=== PATIENT | male | born 1960 | race Caucasian/White ===

== ENCOUNTER → 2022-05-10 13:50 | Outpatient (REF) | payer OTHER, SELFPAY ==
--- NOTE | 2022-05-10 11:18 | HM_ITS ---
Conclusion: 1. Patient was monitored for total period of 3 days and 1 hour 2. Baseline was normal sinus rhythm with average heart of 76 beats per minute 3. No significant pauses or bradycardia noted 4. Total of 43,483 PACs accounting for 13% of total beats account for frequent PACs with multiple short runs of 4-5 beats of supra tachycardia 5. Total of 2418 PVCs accounting for 0.72% of total beats accounting for occasional PVCs 6. No patient reported events MTDD
--- NOTE | 2022-05-10 14:17 | CA_ITS ---
Transthoracic Echocardiogram Patient (Last, First, Middle): Gregg Rubio J Gender: Male Date of : 1960 Age: 61 Procedure Date: 05/10/2022 Procedure Type: Transthoracic Echocardiogram Location: OP Height: 177.8 cm Weight: 136.08 kg BSA: 2.48 m2 Heart Rate: 64 bpm BP: 110 / 60 mmHg Customs Inspector: MAIDA Referring MD: Frank Lassiter MD Symptoms: I49.1 - Atrial premature depolarization Study Quality: Adequate w contrast ECG Rhythm: Sinus Conclusions: - The left ventricular systolic function is normal. The calculated ejection fraction is 63% by biplane method. - No obvious valvular pathology seen on this study. - There is mild dilatation of the ascending aorta measuring 4.20 cm. Findings Procedure Information Contrast agent, definity, is being given per protocol without apparent complications. Left Ventricle Normal left ventricular cavity size. There is normal left ventricular wall thickness. The left ventricular systolic function is normal. The calculated ejection fraction is 63% by biplane method. There is no evidence of regional wall motion abnormalities. Diastolic function is normal for age. Right Ventricle Normal right ventricular cavity size and systolic function. Atria Both atria are normal in size. Aortic Valve The aortic valve was not well visualized. There is no aortic valve stenosis. There is no aortic valve regurgitation. Mitral Valve The mitral valve appears normal. There is no mitral valve regurgitation. There is no mitral valve stenosis. Pulmonic Valve The pulmonic valve is likely normal. Tricuspid Valve There is trace tricuspid valve regurgitation. There is no evidence of pulmonary hypertension. Great Vessels There is mild dilatation of the ascending aorta measuring 4.20 cm. Venous The inferior vena cava is normal in size and collapses greater than 50% with inspiration. Pericardium/Pleural There is a trivial pericardial effusion. Prior Study Comparison No prior study available for comparison. Recommendations, Care & Conclusions No obvious valvular pathology seen on this study. Measurements 2D Linear Measurements IVSd: 0.71 0.6-0.9/0.6-1.0 cm LVIDd: 4.82 3.9-5.3/4.2-5.9 cm LVIDd Index: 1.94 2.4-3.2/2.2-3.1 cm/m2 LVIDs: 2.95 2.0-3.6 cm LVPWd: 0.92 0.7-1.1 cm LA Diam: 3.60 2.7-3.8/3.0-4.0 cm LAIDs Index: 1.45 1.5-2.3 cm/m2 LV Mass: 163.00 67-162/88-224 g LV Mass Index: 65.73 43-95/49-115 g/m2 LVOT Diam: 2.70 3.0+(-)1.3 cm 2D Systolic Function EF 4C: 66.00 >55% EF 2C: 63.80 >55% EF BiP: 63.00 >55% Mitral Valve MV Pk E: 0.99 MV PK A: 0.58 MV Decel Time: 163.00 E/A: 1.70 E'Lateral: 9.79 E'Medial: 7.72 E/E' Med: 12.80 E/E' Lat: 10.10 PHT: 48.00 MVA PHT: 4.58 Decel [place]: 6.08 Aortic Valve AoV Pk [place]: 1.52 AoV Mn [place]: 1.01 AoV VTI: 0.32 AoV Pk Grad: 9.00 Aov Mn Grad: 5.00 UNRULY Cont.VTI: 5.37 LVOT LVOT Pk [place]: 1.36 LVOT Mn [place]: 0.97 LVOT VTI: 0.30 LVOT Pk Grad: 7.00 LVOT Mn Grad: 4.00 LVOT Diam: 2.70 LVOT Area: 5.73 Diastolic Function MV Pk E: 0.99 MV Pk A: 0.58 E/A: 1.70 E'Medial: 7.72 E/E' Med: 12.80 E' Laterial: 9.79 E/E' Lat: 10.10 Right Ventricle TAPSE (mm): 23.10 TVS' [place]: 12.00 Tricuspid Valve TR Pk [place]: 2.43 TR Pk Grad: 24.00 RA Press: 3.00 RVSP: 27.00 Great Vessels Aorta Sinus of Valsalva: 3.50 2.0-3.5 cm Ao Asc: 4.20 2.1-3.4 cm Pulmonary Veins Pulm Vein S/D 0.90 Pulmonary Valve PV Pk [place]: 1.07 Peak PV Grad: 5.00 Updated in Other Vendor System with Status of Final Christofer Padgett MD electronically signed on 05/10/2022 6:16:32 PM with status of Final
== END ==
LOC: HO.CARD 13:50
PROVIDERS: Visit Provider Internal Medicine Cardiovascular Disease
DX: I49.1 Atrial premature depolarization (principal)
CPT/HCPCS: 93242; 93306; Q9957

== ENCOUNTER → 2022-05-14 15:31 | Outpatient (REF) | payer OTHER, SELFPAY | LOC: HO.SL 15:31 | PROVIDERS: Visit Provider Internal Medicine Cardiovascular Disease | DX: G47.33 Obstructive sleep apnea (adult) (pediatric) (principal) | CPT/HCPCS: 95806 ==

== ENCOUNTER 2023-06-25 15:10 | Outpatient (AMB) | payer OTHER, SELFPAY ==
[2023-06-25 15:16] VITALS: BP 120/60; PULSE 62; BMI 42.3
--- NOTE | 2023-06-25 15:16 | MHC.OFFVIS ---
Intake Vital Signs 06/25/23 15:16 Height 5 ft 9 in Weight 286 lb 9.615 oz BMI 42.3 BP 120/60 Blood Pressure Location Lt brachial Position Sitting Pulse 62 Intake Visit Reasons: 1 yr f/u Intake Note: 1 yr f/up patient its fine Allergies No Known Allergies Allergy (Verified 06/25/23 15:19) Medication List - Last Reconciled 06/25/23 by Frank Lassiter MD metoprolol succinate ER 25 mg PO DAILY HPI HPI Comments History of Present Illness Details Gregg comes for follow-up. He has no new cardiac symptoms. He occasionally forgets to take metoprolol. He denies any prolonged palpitation irregular heartbeat. Denies any exertional chest pain or shortness of breath. Has been trying to modify his lifestyle and dietary pattern has lost some weight. Denies any heart failure symptoms. No lightheadedness, syncope. PFSH Medical History Obesity Surgical History Hx of knee surgery Family History Father Cancer Mother Afib Brother Afib Social History Patient Tobacco Use Status: Never used Tobacco Review of Systems Const Reports chills, Reports fatigue, Reports fever(s), Reports frequent falls, Reports weakness, Reports weight gain and Reports weight loss ENT Reports dizziness Card Reports chest pain, Reports leg edema, Reports lightheadedness, Reports palpitations, Reports dyspnea and Reports dyspnea on exertion Resp Reports cough, Reports dyspnea and Reports dyspnea on exertion GI Reports hematochezia Musc Reports abnormal gait, Reports muscle weakness, Reports numbness, Reports radiating pain into limb and Reports tingling Neuro Denies Abnormal speech present, Reports abnormal gait, Reports dizziness, Reports frequent falls, Reports numbness, Reports tingling and Reports weakness Endo Reports fatigue and Reports palpitations Physical Exam Vital Signs: Last Vital Signs Pulse 62 06/25/23 15:16 BP 120/60 06/25/23 15:16 BMI result Body Mass Index 42.3 Const General: cooperative, comfortable, no acute distress, alert, awake and well groomed Nutritional Appearance: obese morbidly obese Orientation/consciousness: patient oriented x3 Limitations: no limitations Neck Neck: Yes trachea midline, Yes supple and Yes no JVD Resp Effort & Inspection: normal respiratory effort Auscultation: clear to auscultation bilaterally Cardio Jugular venous distension: no JVD Palpation: normal PMI Rate: regular rate Rhythm: abnormal rhythm with ectopic beats Heart sounds: S1 normal heart sound present, S2 normal heart sound present, no click, no gallops, no murmurs and no rubs GI Inspection: Yes obesity Auscultation: normal bowel sounds Neuro General: patient oriented x3 and no focal motor deficits Speech: No Abnormal speech present Psych Appearance: grossly normal Assessment & Plan Assessment & Plan (1) PAC (premature atrial contraction): Code(s): I49.1 - Atrial premature depolarization Plan: Patient prior history of PACs without any new symptoms or concerning symptoms for atrial fibrillation. For now continue metoprolol therapy. No change in therapy. Avoidance of stimulants was discussed. He understands management. Advised to call me with worsening symptoms. (2) Thoracic aortic aneurysm: Code(s): I71.20 - Thoracic aortic aneurysm, without rupture, unspecified Plan: Mild thoracic aortic enlargement. No symptoms related to it. Continue metoprolol therapy. Advised to monitor annually by echocardiogram. No surgical interventions required at this point time. Advised to avoid sudden strenuous isometric exercise. Will follow up in the clinic in 1 year's time, sooner p.r.n.. Thank you for allowing me to partake in his care Coding Level of Care Code Est Pt Level 4 (27569) Diagnoses PAC (premature atrial contraction) I49.1 Thoracic aortic aneurysm I71.20
== END 2023-06-25 15:39 | disposition home or self-care (01) ==
PROVIDERS: Visit Provider Internal Medicine Cardiovascular Disease
DX: I49.1 Atrial premature depolarization (principal); I71.20 Thoracic aortic aneurysm, without rupture, unspecified
CPT/HCPCS: 99214

== ENCOUNTER → 2023-06-25 15:10 | Outpatient (BNVA) | payer OTHER, SELFPAY | PROVIDERS: Visit Provider Internal Medicine Cardiovascular Disease ==

== ENCOUNTER 2023-07-12 07:59 | Day surgery (SDC) | payer OTHER, SELFPAY ==
[2023-07-10 11:16] VITALS: BMI 40.6
--- NOTE | 2023-07-10 15:03 | HO.ANESPROP2 ---
Documented by User: Susie Jensen NP 07/10/23 15:06 HPI - Anesthesia Eval Consult details Narrative: 62yo M for Colonoscopy Follows [facility] Cardiology yearly - last office visit 06/25/23 - stable for 1 year f/u PMFSH Active Problems Active Problems: All Active Problems (Updated 07/10/23 @ 11:15 by Aidee Houston, RN) Thoracic aortic aneurysm (Acute) PAC (premature atrial contraction) (Acute) Obesity (Acute) Past Medical History Medical History Arthritis PAC (premature atrial contraction) PVC's (premature ventricular contractions) Thoracic aortic aneurysm (TAA) DONNA (obstructive sleep apnea) Obesity Family History Family History Father Cancer Mother Afib Brother Afib Surgical History Surgical History History of arthroscopy of both knees Hx of varicose vein ligation Hx of vasectomy Hx of colonoscopy Hx of knee surgery Social History Social History Patient Tobacco Use Status: Never used Tobacco Meds Allergies Allergy/AdvReac Type Severity Reaction Status Date / Time No Known Allergies Allergy Verified 06/25/23 15:19 Exam Height,Weight and Vital Signs: Height 5 ft 10.25 in Weight 129.274 kg Narrative Narrative: EKG 06/2023 SR with SA ? Inferior infarct (Rev'd by [facility] [employer]) ECHO 2021 Conclusions: - The left ventricular systolic function is normal. The calculated ejection fraction is 63% by biplane method. - No obvious valvular pathology seen on this study. - There is mild dilatation of the ascending aorta measuring 4.20 cm. Assessment and Plan Assessment Anesthesia Assessment: Chart Reviewed Documented by User: Radha Kelley MD 07/12/23 08:44 [facility] Active Problems Active Problems: All Active Problems (Updated 07/10/23 @ 11:15 by Aidee Houston, RN) Thoracic aortic aneurysm (Acute) PAC (premature atrial contraction) (Acute) Obesity (Acute) Mild DONNA per sleep study but patient is denying. Conservative measures recommended and CPAP if indicated. Patient not doing anything for the DONNA for now Past Medical History Medical History Arthritis PAC (premature atrial contraction) PVC's (premature ventricular contractions) Thoracic aortic aneurysm (TAA) DONNA (obstructive sleep apnea) Obesity Family History Family History Father Cancer Mother Afib Brother Afib Family history of problems with anesthesia: No Surgical History Surgical History History of arthroscopy of both knees Hx of varicose vein ligation Hx of vasectomy Hx of colonoscopy Hx of knee surgery History of Problems with Anesthesia: No Social History Social History Patient Tobacco Use Status: Never used Tobacco Meds Allergies Allergy/AdvReac Type Severity Reaction Status Date / Time No Known Allergies Allergy Verified 06/25/23 15:19 Exam Height,Weight and Vital Signs: Height 5 ft 10.25 in Weight 129.274 kg Vital Signs Temp Pulse Resp BP Pulse Ox O2 Del Method 07/12/23 08:02 98 F 78 20 122/67 97 Room Air Airway Mallampati Class: III TM Dist: >3cm Neck ROM: Full Loose/Missing/Broken Teeth: No (Denies broken, loose, missing teeth) Heart: RRR Lungs: CTAB Assessment and Plan Assessment Anesthesia Assessment: Anesthesia Plan Discussed Final Anesthetic Review Family History of Problems with Anesthesia: No History of Problems with Anesthesia: No NPO: Yes ASA Class: III Final Preanesthetic Review: No Changes in Pt Med Stat, Meds/Allgs Chart Reviewed, Consent Obtained/Reviewed and Anes Risks/Benef Reviewed Patient Risk: Intermediate Procedure Risk: Low Assessment/Block/Sedation in SS: Assess/Block/Sedation-SS Anesthetic Plan Anesthetic Plan: MAC: Disposition: Standard PACU
[2023-07-12 08:02] VITALS: BP 122/67; PULSE 78; RESP 20; TEMP 36.6; O2SAT 97; BMI 40.6
[2023-07-12] MEDS: Lactated Ringers 1,000 ML 100 ML IVCONT (08:17)
--- NOTE | 2023-07-12 08:21 | MHC.SHP ---
Pre-Procedural Eval Section A Date of Service: 07/12/23 Section B Chief Complaint: screening Details of Present Illness: see H&P no changes Relevant Family History (Specify if Yes): No Relevant Social History: None Present Medications: see Short Stay Collaborative assessment Medical History: No relevant PMH Allergies: Allergies Allergy/AdvReac Type Severity Reaction Status Date / Time No Known Allergies Allergy Verified 06/25/23 15:19 Review of Systems Sugical H&P ROS: Negative: Constitution, Cardiovascular, Respiratory, Neurological, Psychiatric, Hem-Onc, Allergic/Immunologic, Gastrointestinal, Genitourinary, Musculoskeletal, Integumentary, Endocrine and Eyes/Ears/Nose/Throat Exam Surgical H&P Exam: Normal: HEENT, Normal: Heart, Normal: Lungs, Normal: Extremities, Normal: Abdomen, Normal: Skin and Normal: Neurological Plan Diagnosis/Plan: Unchanged I have reviewed the history and physical and performed a pertinent physical examination on my patient. No changes have occurred unless specified. Time Spent With Patient Time: Total time managing care of this patient today ____ minutes.
[2023-07-12 09:12] VITALS: BP 93/53; PULSE 54; RESP 16; TEMP 36.6; O2SAT 98
[2023-07-12 09:27] VITALS: BP 110/67; PULSE 51; RESP 18; O2SAT 100
--- NOTE | 2023-07-12 09:42 | OP_ITS ---
DATE OF SERVICE: 07/12/2023 SURGEON: Jake Keith MD INDICATIONS: Colon cancer screening. PREOPERATIVE DIAGNOSIS: POSTOPERATIVE DIAGNOSIS: PROCEDURE PERFORMED: Colonoscopy to the terminal ileum with biopsy. ESTIMATED BLOOD LOSS: COMPLICATIONS: ANESTHESIA: Monitored anesthesia care. ASSISTANTS: SPECIMENS: DESCRIPTION OF PROCEDURE: A history and physical was performed. The risks and benefits of the procedure were explained to the patient. Informed consent was obtained. The patient was placed in the left lateral decubitus position. A digital rectal exam was performed and was found to be normal. The Olympus pediatric video colonoscope was introduced in the rectum and advanced to the cecum. The cecum was identified by transillumination, palpation, and identification of ileocecal valve. Examination was performed. The scope was removed. He tolerated the procedure well and was taken to recovery area in stable condition. FINDINGS: The terminal ileum was normal. The visualized colonic mucosa was within normal limits without evidence of masses or ulcers. Two polyps were identified in the rectum measuring less than 5 mm. Both were removed with biopsy forceps. Retroflexed examination showed small internal hemorrhoids and hypertrophic anal papillae. The quality of the prep was good. IMPRESSION: Colon polyps. RECOMMENDATION: Follow up the biopsy results. MD ROLANDO Phelan/ANNEL / [id number]
== END 2023-07-12 09:50 | disposition home or self-care (01) ==
PROVIDERS: Visit Provider Internal Medicine Gastroenterology
PROC: 0DJD8ZZ Inspection of Lower Intestinal Tract, Via Natural or Artificial Opening Endoscopic (ICD-10-PCS; CPT 45378; principal; 2023-07-12 09:10)
DX: Z12.11 Encounter for screening for malignant neoplasm of colon (principal); Z86.010 Personal history of colon polyps; D12.8 Benign neoplasm of rectum; K64.8 Other hemorrhoids; K62.89 Other specified diseases of anus and rectum; I49.1 Atrial premature depolarization; I49.3 Ventricular premature depolarization; M19.90 Unspecified osteoarthritis, unspecified site; E66.9 Obesity, unspecified; Z68.41 Body mass index [BMI] 40.0-44.9, adult; Z79.899 Other long term (current) drug therapy; Z98.52 Vasectomy status
CPT/HCPCS: 45380; 88305; J2704

== ENCOUNTER → 2023-07-17 12:58 | Outpatient (REF) | payer OTHER, SELFPAY ==
--- NOTE | 2023-07-17 13:00 | CA_ITS ---
Transthoracic Echocardiogram Patient (Last, First, Middle): Gregg Rubio J Gender: Male Date of : 1960 Age: 62 Procedure Date: 07/17/2023 Procedure Type: Transthoracic Echocardiogram Location: OP Height: 175.26 cm Weight: 129.73 kg BSA: 2.40 m2 Heart Rate: 57 bpm BP: 122 / 64 mmHg Pairer Substandard: MAIDA Referring MD: Frank Lassiter MD Symptoms: I71.20 - Thoracic aortic aneurysm, without rupture, unspecified Study Quality: Adequate ECG Rhythm: Bradycardia Conclusions: - The left ventricular systolic function is normal. The calculated ejection fraction is 59% by biplane method. - No obvious valvular pathology seen on this study. - There is mild dilatation of the ascending aorta measuring 4.20 cm. Findings Procedure Information Contrast agent, definity, is being given per protocol without apparent complications. Left Ventricle Normal left ventricular cavity size. There is normal left ventricular wall thickness. The left ventricular systolic function is normal. The calculated ejection fraction is 59% by biplane method. There is no evidence of regional wall motion abnormalities. Diastolic function is normal for age. LV peak GLS -19.9%. Right Ventricle Normal right ventricular cavity size and systolic function. Atria Both atria are normal in size. Aortic Valve There is a normal trileaflet aortic valve. There is no aortic valve stenosis. There is no aortic valve regurgitation. Mitral Valve The mitral valve appears normal. There is no mitral valve regurgitation. There is no mitral valve stenosis. Pulmonic Valve The pulmonic valve is likely normal. Tricuspid Valve Normal tricuspid valve structure. There is mild tricuspid valve regurgitation. There is no evidence of pulmonary hypertension. Great Vessels The aortic arch is normal in size. There is mild dilatation of the ascending aorta measuring 4.20 cm. Venous The inferior vena cava is normal in size and collapses greater than 50% with inspiration. Pericardium/Pleural There is no evidence of pericardial effusion. Prior Study Comparison No significant change compared to prior study dated: 05/10/2022. Recommendations, Care & Conclusions No obvious valvular pathology seen on this study. Measurements 2D Linear Measurements IVSd: 0.69 0.6-0.9/0.6-1.0 cm LVIDd: 5.44 3.9-5.3/4.2-5.9 cm LVIDd Index: 2.27 2.4-3.2/2.2-3.1 cm/m2 LVIDs: 4.01 2.0-3.6 cm LVPWd: 0.62 0.7-1.1 cm LA Diam: 3.90 2.7-3.8/3.0-4.0 cm LAIDs Index: 1.63 1.5-2.3 cm/m2 LV Mass: 152.28 67-162/88-224 g LV Mass Index: 63.45 43-95/49-115 g/m2 LVOT Diam: 2.60 3.0+(-)1.3 cm 2D Systolic Function EF 4C: 63.80 >55% EF 2C: 52.60 >55% EF BiP: 58.60 >55% Mitral Valve MV Pk E: 1.09 MV PK A: 0.60 MV Decel Time: 175.00 E/A: 1.80 E'Lateral: 10.20 E'Medial: 7.94 E/E' Med: 13.70 E/E' Lat: 10.70 PHT: 51.00 MVA PHT: 4.31 Decel [place]: 6.26 Aortic Valve AoV Pk [place]: 1.51 AoV Pk Grad: 9.00 UNRULY: 4.16 LVOT LVOT Pk [place]: 1.23 LVOT Mn [place]: 0.87 LVOT VTI: 0.27 LVOT Pk Grad: 6.00 LVOT Mn Grad: 3.00 LVOT Diam: 2.60 LVOT Area: 5.31 Diastolic Function MV Pk E: 1.09 MV Pk A: 0.60 E/A: 1.80 E'Medial: 7.94 E/E' Med: 13.70 E' Laterial: 10.20 E/E' Lat: 10.70 Tricuspid Valve TR Pk [place]: 2.48 TR Pk Grad: 25.00 RA Press: 3.00 RVSP: 28.00 Great Vessels Aorta Sinus of Valsalva: 3.50 2.0-3.5 cm Ao Asc: 4.20 2.1-3.4 cm Ao Arch: 3.40 Pulmonary Veins Pulm Vein S/D 0.70 Pulmonary Valve PV Pk [place]: 1.05 Peak PV Grad: 4.00 Updated in Other Vendor System with Status of Final Christofer Padgett MD electronically signed on 07/19/2023 12:18:04 PM with status of Final
== END ==
LOC: HO.CARD 12:58
PROVIDERS: Visit Provider Internal Medicine Cardiovascular Disease
DX: I71.20 Thoracic aortic aneurysm, without rupture, unspecified (principal)
CPT/HCPCS: 93306; 93356; Q9957

== ENCOUNTER → 2023-07-17 13:00 | Outpatient (BNV) | payer OTHER, SELFPAY | PROVIDERS: Visit Provider Internal Medicine | DX: I71.20 Thoracic aortic aneurysm, without rupture, unspecified (principal) | CPT/HCPCS: 93306 ==

== ENCOUNTER 2024-06-25 15:03 | Outpatient (AMB) | payer OTHER, SELFPAY ==
[2024-06-25 15:22] VITALS: BP 118/72; RESP 59; BMI 39.6
--- NOTE | 2024-06-25 15:22 | MHC.OFFVIS ---
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 He has been doing his work without any issues. Denies any exertional chest pain or shortness of breath. Taking his medications. He said sometimes at work about 2 or 3 times last year while he is upright and moving around he gets lightheaded. No syncopal episodes. No orthostatic lightheadedness when he gets up in the morning. Denies any palpitations including no prolonged irregular heartbeat. [facility] Medical History Arthritis PAC (premature atrial contraction) PVC's (premature ventricular contractions) Thoracic aortic aneurysm (TAA) DONNA (obstructive sleep apnea) Obesity Surgical History History of arthroscopy of both knees Hx of varicose vein ligation Hx of vasectomy Hx of colonoscopy Hx of knee surgery Family History Father Cancer Mother Afib Brother Afib Social History Patient Tobacco Use Status: Never used Tobacco Review of Systems Const Denies chills, Denies fatigue, Denies fever(s), Denies frequent falls, Denies weakness, Denies weight gain and Denies weight loss ENT Denies dizziness Card Denies chest pain, Denies leg edema, Denies lightheadedness, Denies palpitations, Denies dyspnea, Denies dyspnea on exertion, Denies orthopnea and Denies other (loss of consciousness) Resp Denies cough, Denies dyspnea and Denies dyspnea on exertion GI Denies hematochezia and Denies change in stool character Musc Denies abnormal gait, Denies muscle weakness, Denies numbness, Denies radiating pain into limb and Denies tingling Neuro Denies Abnormal speech present, Denies abnormal gait, Denies dizziness, Denies frequent falls, Denies numbness, Denies tingling and Denies weakness Endo Denies fatigue and Denies palpitations Physical Exam Vital Signs: Last Vital Signs Resp 59 H 06/25/24 15:22 BP 118/72 06/25/24 15:22 BMI result Body Mass Index 39.6 Const General: cooperative, comfortable, no acute distress, alert, awake and well groomed Nutritional Appearance: obese morbidly obese Orientation/consciousness: patient oriented x3 Limitations: no limitations Neck Neck: Yes trachea midline, Yes supple and Yes no JVD Resp Effort & Inspection: normal respiratory effort Auscultation: clear to auscultation bilaterally Cardio Jugular venous distension: no JVD Palpation: normal PMI Rate: regular rate Rhythm: abnormal rhythm with ectopic beats Heart sounds: S1 normal heart sound present, S2 normal heart sound present, no click, no gallops, no murmurs and no rubs GI Inspection: Yes obesity Auscultation: normal bowel sounds Neuro General: patient oriented x3 and no focal motor deficits Speech: No Abnormal speech present Psych Appearance: grossly normal Office Procedures EKG Details: EKG shows normal sinus rhythm with possible inferior infarct most likely due to body habitus with low voltage QRS complexes 06051-Rnrepoblgyczsjane, Complete Assessment & Plan Assessment & Plan (1) Thoracic aortic aneurysm: Code(s): I71.20 - Thoracic aortic aneurysm, without rupture, unspecified Category: Medical Plan: Mild thoracic aortic aneurysm. Will repeat echocardiogram in near future to assess for any enlargement. If stable will pursue echocardiogram every 2 years after that. Continue aggressive blood pressure control. He is having symptoms of orthostatic lightheadedness most likely due to reduce salt intake. Advised to increase his salt intake as well as fluid intake. Orthostatic precautions were discussed. (2) PAC (premature atrial contraction): Code(s): I49.1 - Atrial premature depolarization Category: Medical Plan: PACs without any symptoms and suppressed on metoprolol therapy. Continue the same. Avoidance of stimulants was discussed advised to call me with any change in symptoms especially prolonged irregular heartbeat. Will follow up in the clinic in 1 year's time, sooner p.r.n.. Thank you for allowing me to partake in his care Orders: Orders CA echo transthoracic complete Today I71.20 - Thoracic aortic aneurysm, without rupture, unspecified Coding Level of Care Code Est Pt Level 4 (50117) Complex EM visit Add On G2211 Diagnoses Thoracic aortic aneurysm I71.20 PAC (premature atrial contraction) I49.1 CPT Codes EKG - CPT: 22679-Aqaqlvsdfwyfxhmcr, Complete ([id number])
--- OUTSIDE RECORDS SUMMARY | 2024-07-01 04:15 | XMS_ITS | Continuity of Care Document ---
Author Organization [facility] Address [address] [place] [address] Phone Care Team Providers Care Systems Admin Name Role Phone Jr RUIZ, RVT, DARIEL, [...] E&M Established 15 Mins [facility], [address] [place] [address] Dr Baez 1000Suite 1000L[place], [id number], [place] tel:[phone] [place] Venous insufficiency (chronic) (peripheral) 4 Jr RUIZ RVT, DARIEL Puente. [address] [place] [address], [place], [place], [id number] , [place]. tel:[phone] Referring Provider: Nick Hill, [facility] [address], [place], [address]. tel:[phone] [facility], [address] [place] [address] Dr Baez 1000Suite 1000L[place], [id number], [place] tel:[phone] [facility] Encounter for follow-up examination after completed treatment for conditions other than malignant neVaricose veins of bilateral lower extremities with pain 4 Jr RUIZ RVT, DARIEL Puente. [facility] [address], [place], [place], [id number] , [place]. tel:[phone] Referring Provider: Nick Hill, [facility] [address], [place], [address]. tel:[phone] [facility], [address] [place] [address] Dr Baez 1000Suite 1000L[place], [id number], [place] tel:[phone] [facility] Varicose veins of left lower extremity with other complications 3 Ciara Vazquez . [address], [address], [place], [place], [id number] , [place]. tel:[phone] Referring Provider: Nick Hill, [facility] [address], [place], [address]. tel:[phone] [facility], [address] [place] [address] Dr Baez 1000Suite 1000L[place], [id number], [place] tel:[phone] [facility] Encounter for follow-up examination after completed treatment for conditions other than malignant ne 3 Jr RUIZ RVT, DARIEL Puente. [address] [facility], [address], [facility], [place], [id number] , [place]. tel:[phone] Referring Provider: Nick Hill, [employer] [employer] [address], [place], [address]. [phone] [facility], [address] [place] [address] Dr Baez 1000Suite 1000Lillian [place], [id number], [place] tel:[phone] CVR - [facility] Chronic venous hypertension (idiopathic) with inflammation of left lower extremity 3 Jr RUIZ RVT, DARIEL Puente. [address] [facility] [address], [address], [facility], [place], [id number] , [place]. tel: [phone] Referring Provider: Nick Hill, [facility] [address], [place], [address]. tel:[phone] [facility], [address] [place] [address] Dr Baez 1000Suite 1000Lillian [place], [id number], [place] tel:[phone] CVR - [facility] Varicose veins of left lower extremity with other complications 3 Jr RUIZ RVT, DARIEL Puente. [facility], [address], [facility], [place], [id number] , [place]. tel: [phone] Referring Provider: Nick Hill, [employer] [facility] [address], [place], [address]. [phone] [facility], [address] [place] [address] Dr Baez 1000Suite 1000Lillian [place], [id number], [place] [phone] CVR - [facility] Varicose veins of right lower extremity with other complications 3 Ciara Vazquez . [address], [address], [facility], [place], [id number] , [place]. tel:[phone] Referring Provider: Nick Hill, [facility] [address], [place], [address]. tel:[phone] [facility], [address] [place] [address] [address], [place], [id number], [place] tel:[phone] CVR [facility] Encounter for follow-up examination after completed treatment for conditions other than malignant nePain in right leg 3 Tor RUIZ FACS HAYDEET DARIEL Johnson. [address] [place] [address], [address], [place], [address], [place]. tel:[phone] Referring Provider: Nick Hill, [employer] [address], [place], [address]. tel:[phone] [facility], [address] [place] [address] [address], [place], [id number], [place] tel:[phone] [facility] Chronic venous hypertension (idiopathic) with inflammation of right lower extremity 3 Jr RUIZ, NAKITA, DARIEL Puente. [address] [place] [address], [place] [address], [place], [place], [id number] , [place]. tel:[phone] Referring Provider: Nick Hill, [employer] [address], [place], [address]. tel:[phone] [facility], [address] [place] [address] [address], [place], [id number], [place] tel:[phone] [facility] Varicose veins of right lower extremity with other complications 3 Jr RUIZ RVT, DARIEL Puente. [address] [place] [address], [address], [place], [place], [id number] , [place]. tel:[phone] Referring Provider: Nick Hill, [facility] [employer] [address], [place], [address]. tel:[phone] Office/Outpt E&M Established 15 Mins [facility], [address] [place] [address] [address], [place], [id number], [place] tel:[phone] CVR - [facility] Chronic venous htn w oth comp of bilateral low extrm Sep-1 3 Tor Johnson. [address] [facility], [place] [address], [place], [address], [place]. tel:[phone] Referring Provider: Nick Hlil, [facility] [address], [place], [address]. tel:[phone] [facility], [address] [place] [address] [address], [place], [id number], [place] tel:[phone] [facility] Varicose veins of bilateral lower extremities with pain Sep-1 3 Tor Johnson. [address] [facility], [place] [address], [place], [address], [place]. tel:[phone] Referring Provider: Ncik Hill, [facility] [address], [place], [address]. tel:[phone] Office/Oupt E&M New Pt 30 Mins [facility], [address] [place] [address] Dr Baez 1000[address] 1000, [place], [id number], [place] tel:[phone] CVR [facility] Chronic venous htn w oth comp of bilateral low extrmDisorder of pigmentation, unspecifiedFla il joint, unspecified jointCramp and spasmLocalized edema Sep-0 3 Tor Johnson. [address] [facility] [address], [address], [place], [address], [place]. tel:[phone] Referring Provider: Nick Hill, [facility] [address], [place], [address]. tel:[phone] Family History Family Member Type Diagnosis Age At Onset No Information Payers Payer name Insurance type Covered democrat ID Pedro BOUCHER (s) [id number] Social History Type Description Quantity Date Captured [...] w oth comp of bilateral low extrm Lifestyle education Related to B precious mass index (BMI) 40.0-44.9, adult Giving Encouragement to exercise Related to Body mass index (BMI) 40.0-44.9, adult Assessments Type Assessment Date No Information Patient Care Teams Name Effective Dates (start - stop) Status Members No Information
--- OUTSIDE RECORDS SUMMARY | 2024-07-01 04:15 | XMS_ITS ---
Author Organization [facility] Address [address] [place] [address] Care Team Providers Care Canal Driver Name Role Phone Nick Arriaga Primary Care Provider Unava Jake Corbin Jr REASON FOR VISIT pathology Encounters Encounter Location Date Provider Diagnosis [facility] [address] [place] [address] 07/25/2023 Jake Keith Jr PLAN OF TREATMENT No Information
--- OUTSIDE RECORDS SUMMARY | 2024-07-01 04:15 | XMS_ITS | Patient Health Record ---
Author Organization [facility] Address [address] [place] [address] Care Team Providers Care Animal Scientist Name Role Phone Nick Arriaga Primary Care Provider Todd Keith Jr Jake Unavailable ALLERGIES No Known Allergies RESULTS Component Value Reference Range Notes Pathology Reviewed date:07/25/2023 11:53:14 AM Interpretation: Performing Lab:[facility], [address] [place] [id number] Notes/Report: REASON FOR REFERRAL No Information MEDICATIONS Medication SIG (Take, Route, Frequency, Duration) Notes Start Date End Date Status MiraLax (colon prep) 17 GM/SCOOP mixed with Gatorade or Crystal Light Orally begin at 5:00 p.m. the day before the procedure for 1 day 05/27/2023 Active Metoprolol Succinate ER 25 MG Oral for 30 Active IMMUNIZATIONS Vaccine Route Administration Date Status Comme nts Influenza Unknown 05/29/2022 Administered SOCIAL HISTORY Sex Assigned At : Social History Observation Description Sex Assigned At Unknown Alcohol Screen Question Answer Notes Did you have a drink contain ing alcohol in the past year? Yes How often did you have a dri nk containing alcohol in the past year? 2 to 4 times a month (2 points) How many drinks did you have on a typical day when you were drinking in the past year? 5 or 6 drinks (2 points) How often did you have 6 or more drinks on one occasion in the past year? Monthly (2 points) Points 6 Interpretation Positive PROBLEMS Problem Type ICD Code Onset Dates Problem Status W/U Status Risk SNOMED Code Notes Problem Colon cancer screening (Z12.11) Active confirmed 124653116 Problem Personal history of colonic polyps (Z86.010) Active confirmed 799190939 Problem Encounter for other preprocedural examination (Z01.818) Active confirmed 740397836 Encounters Encounter Location Date Provider Diagnosis [facility] Outpatient [address] [place], [place] [id number] 07/12/2023 Jake Keith Jr Encounter for screening colonoscopy Z12.11 and Colon polyps K63.5 [facility] [address] [place] [address] 07/25/2023 Jake Keith Jr ASSESSMENTS Encounter Date Diagnosis Assessment Notes Treatment Notes Treatment Clinical Notes 07/12/2023 Encounter for screening colonoscopy (ICD-10 - Z12.11) 07/12/2023 Colon polyps (ICD-10 - K63.5) PLAN OF TREATMENT Future Test Test Name Order Date COLONOSCOPY 06/26/2013 COLONOSCOPY 05/27/2023 Insurance Providers Payer Name Payer Address Payer Phone Subscriber Number Group Number Insured Name Patient Relationship to Insured Coverage Start Date [facility]age End Date [facility] [address] [place] [address] [id number] STEPHANIE CHAVIRA Self - patient is the insured MEDICAL (GENERAL) HISTORY Medical History History ICD Code Colonoscopy 10/02, tubular adenoma, five- year followup PACs/PVCs Elevated BMI Arthritis Surgical History Surgery Date(Month/Year) vasectomy Varicose vein surgery MCL surgery left/right knees
--- OUTSIDE RECORDS SUMMARY | 2024-07-01 04:15 | XMS_ITS ---
Author Organization [facility] Address [address] [place] [address] Care Team Providers Care Citrix Engineer Name Role Phone Nick Arriaga Primary Care Provider Emmava Jake Corbin Jr REASON FOR VISIT screening Encounters Encounter Location Date Provider Diagnosis [facility] Outpatient [address] [place] [phone] 07/12/2023 Jake Keith Jr Encounter for screening colonoscopy Z12.11 and Colon polyps K63.5 ASSESSMENTS Encounter Date Diagnosis Assessment Notes Treatment Notes Treatment Clinical Notes 07/12/2023 Encounter for screening colonoscopy (ICD-10 - Z12.11) 07/12/2023 Colon polyps (ICD-10 - K63.5) PLAN OF TREATMENT No Information
--- OUTSIDE RECORDS SUMMARY | 2024-07-01 04:15 | XMS_ITS ---
Author Organization [facility] Address [address] [place] [address] Care Team Providers Care Plant Buyer Name Role Phone Nick Arriaga Primary Care Provider Jake Dennis Jr Unavailable [phone] ALLERGIES No Known Allergies REASON FOR VISIT Patient presents today for a colon screening MEDICATIONS Medication SIG (Take, Route, Frequency, Duration) Notes Start Date End Date Status MiraLax (colon prep) 17 GM/SCOOP mixed with Gatorade or Crystal Light Orally begin at 5:00 p.m. the day before the procedure for 1 day 05/27/2023 Active Metoprolol Succinate ER 25 MG Oral for 30 Active SOCIAL HISTORY Tobacco Use: Social History Observation Description Date Details (start date - stop date) Never Smoker NA - NA Sex Assigned At : Social History Observation Description Sex Assigned At Unknown Tobacco Use/Smoking Question Answer Notes Patient is a nonsmoker Alcohol Screen Question Answer Notes Did you [...] Problem Colon cancer screening (Z12.11) Active confirmed 885972707 Problem Personal history of colonic polyps (Z86.010) Active confirmed 630612259 Problem Encounter for other preprocedural examination (Z01.818) Active confirmed 706776788 VITAL SIGNS BMI 40.60 kg/m2 05/27/2023 Blood pressure systolic 000 mm Hg 05/27/20 23 Blood pressure diastolic 00 mm Hg 023 Height 70.25 in 05/27/2023 Temperature 98.2 degrees Fahrenheit 05/27/20 23 Weight 285 lbs 05/27/2023 Encounters Encounter Location Date Provider Diagnosis [facility] [address] [place] [address] 05/27/2023 Jake Keith Jr Colon cancer screening Z12.11 ; Encounter for other preprocedural examination Z01.818 and Personal history of colonic polyps Z86.010 ASSESSMENTS Encounter Date Diagnosis Assessment Notes Treatment Notes Treatment Clinical Notes 05/27/2023 Colon cancer screening (ICD-10 - Z12.11) Colonoscopy material was printed 05/27/2023 Encounter for other preprocedural examination (ICD-10 - Z01.818) 05/27/2023 Personal history of colonic polyps (ICD-10 - Z86.010) PLAN OF TREATMENT Medication Medication Name Sig Start Date Stop Date Notes MiraLax (colon prep) 17 GM/SCOOP mixed with Gatorade or Crystal Light Orally begin at 5:00 p.m. the day before the procedure for 1 day 05/27/2023 Treatment Notes Assessment Notes Colon cancer screening Colonoscopy mater ial was printed Future Test Test Name Order Date COLONOSCOPY 05/27/2023 Next Appt Details Follow Up: 1 Year, Reason: Progress Notes * Examination Category Sub-Category Detail Notes General Examination GENERAL APPEARANCE: in no ac telida distress HEAD: normocephalic EYES: sclera non-icteric NECK/THYROID: no lymphadenopathy HEART: S1, S2 normal, no mu rmurs CHEST: normal shape and exp ansion LUNGS: clear to auscultatio n bilaterally ABDOMEN: soft, nontender, non distended, bowel sounds present, no organomegaly SKIN: anicteric EXTREMITIES: no clubbing, cyanosi s, or edema PSYCH: cognitive function i ntact ORAL CAVITY: mucosa moist
== END 2024-06-25 15:43 | disposition home or self-care (01) ==
PROVIDERS: Visit Provider Internal Medicine Cardiovascular Disease
DX: I71.20 Thoracic aortic aneurysm, without rupture, unspecified (principal); I49.1 Atrial premature depolarization
CPT/HCPCS: 93010; 99214

== ENCOUNTER → 2024-06-25 15:03 | Outpatient (BNVA) | payer OTHER, SELFPAY | PROVIDERS: Visit Provider Internal Medicine Cardiovascular Disease | DX: I71.20 Thoracic aortic aneurysm, without rupture, unspecified (principal); I49.1 Atrial premature depolarization | CPT/HCPCS: 93005 ==

== ENCOUNTER → 2024-07-17 14:51 | Outpatient (REF) | payer OTHER, SELFPAY ==
--- OUTSIDE RECORDS SUMMARY | 2024-07-17 14:53 | XMS_ITS | Patient Health Record ---
Author Organization [facility] Address [address] [place] [address] Care Team Providers Care Special Education Assistant Name Role Phone Nick Arriaga Primary Care Provider Todd Keith Jr Jake Unavailable ALLERGIES No Known Allergies REASON FOR REFERRAL No Information MEDICATIONS Medication [...] Problem Colon cancer screening (Z12.11) Active confirmed [id number] Problem Personal history of colonic polyps (Z86.010) Active confirmed 950258639 Problem Encounter for other preprocedural examination (Z01.818) Active confirmed [id number] Encounters Encounter Location Date Provider Diagnosis [facility] [address] [place] [address] 07/25/2023 Jake Keith Jr PLAN OF TREATMENT Future Test Test Name Order Date COLONOSCOPY 06/26/2013 COLONOSCOPY 05/27/2023 Insurance Providers Payer Name Payer Address Payer Phone Subscriber Number Group Number Insured Name Patient Relationship to Insured Coverage Start Date Coverage End Date [employer] [address] [place] [address] [phone] [id number] STEPHANIE CHAVIRA Self - patient is the insured MEDICAL (GENERAL) HISTORY Medical History History ICD Code Colonoscopy 10/02, tubular adenoma, five- year followup PACs/PVCs Elevated BMI Arthritis Surgical History Surgery Date(Month/Year) vasectomy Varicose vein surgery MCL surgery left/right knees
--- OUTSIDE RECORDS SUMMARY | 2024-07-17 14:53 | XMS_ITS ---
Author Organization [facility] Address [address] [place] [address] Care Team Providers Care Shoe Packer Name Role Phone Nick Arriaga Primary Care Provider Emmava Jake Corbin Jr REASON FOR VISIT screening Encounters Encounter Location Date Provider Diagnosis [facility] [place] [address] [place] [phone] 07/12/2023 Jake Keith Jr Encounter for screening colonoscopy Z12.11 and Colon polyps K63.5 ASSESSMENTS Encounter Date Diagnosis Assessment Notes Treatment Notes Treatment Clinical Notes 07/12/2023 Encounter for screening colonoscopy (ICD-10 - Z12.11) 07/12/2023 Colon polyps (ICD-10 - K63.5) PLAN OF TREATMENT No Information
--- OUTSIDE RECORDS SUMMARY | 2024-07-17 14:53 | XMS_ITS ---
Author Organization [facility] Address [address] [place] [address] Care Team Providers Care Oiling Machine Operator Name Role Phone Nick Arriaga Primary Care Provider Jake Dennis Jr Unavailable [phone] ALLERGIES No Known Allergies REASON FOR [...] Problem Colon cancer screening (Z12.11) Active confirmed 343373511 Problem Personal history of colonic polyps (Z86.010) Active confirmed 881086917 Problem Encounter for other preprocedural examination (Z01.818) Active confirmed 600877822 VITAL SIGNS BMI 40.60 kg/m2 05/27/2023 Blood pressure systolic 000 mm Hg 05/27/20 23 Blood pressure diastolic 00 mm Hg 023 Height 70.25 in 05/27/2023 Temperature 98.2 degrees Fahrenheit 05/27/20 23 Weight 285 lbs 05/27/2023 Encounters Encounter Location Date Provider Diagnosis [facility] [address] [place] [address] 05/27/2023 Jake Keith Jr Colon cancer screening [...] General Examination GENERAL APPEARANCE: in no ac manzanita distress HEAD: normocephalic EYES: sclera non-icteric NECK/THYROID: no lymphadenopathy HEART: S1, S2 normal, no mu rmurs CHEST: normal shape and exp ansion LUNGS: clear to auscultatio n bilaterally ABDOMEN: soft, nontender, non distended, bowel sounds present, no organomegaly SKIN: anicteric EXTREMITIES: no clubbing, cyanosi s, or edema PSYCH: cognitive function i ntact ORAL CAVITY: mucosa moist
--- NOTE | 2024-07-17 14:54 | CA_ITS ---
Transthoracic Echocardiogram Patient (Last, First, Middle): Gregg Rubio J Gender: Male Date of : 1960 Age: 63 Procedure Date: 07/17/2024 Procedure Type: Transthoracic Echocardiogram Location: OP Height: 177. cm Weight: 124.74 kg BSA: 2.38 m2 Heart Rate: bpm BP: 118 / 65 mmHg Circuit Design Engineer: KELL Referring MD: Frank Lassiter MD Symptoms: I71.20 - Thoracic aortic aneurysm, without rupture, unspecified Study Quality: Adequate Conclusions: - Normal left ventricular cavity size. There is normal left ventricular wall thickness. The left ventricular systolic function is hyperdynamic. The visually estimated ejection fraction is >70%. - Normal right ventricular cavity size and systolic function. - There is mild dilatation of the ascending aorta measuring 3.70 cm. Findings Left Ventricle Normal left ventricular cavity size. There is normal left ventricular wall thickness. The left ventricular systolic function is hyperdynamic. The visually estimated ejection fraction is >70%. There is no evidence of regional wall motion abnormalities. Diastolic function is normal for age. Right Ventricle Normal right ventricular cavity size and systolic function. Atria The left atrium is normal in size. The right atrium is likely dilated. Aortic Valve Normal aortic valve structure and function. There is no aortic valve stenosis. There is no aortic valve regurgitation. Mitral Valve The mitral valve appears normal. There is no mitral valve regurgitation. There is no mitral valve stenosis. Pulmonic Valve The pulmonic valve is likely normal. Tricuspid Valve Normal tricuspid valve structure. There is no tricuspid valve regurgitation. Normal right atrial pressure. There is no evidence of pulmonary hypertension. Great Vessels There is mild dilatation of the ascending aorta measuring 3.70 cm. The visualized portions of the pulmonary artery and branches are normal. Venous The inferior vena cava is normal in size and collapses greater than 50% with inspiration. Pericardium/Pleural There is no evidence of pericardial effusion. Prior Study Comparison Changes noted compared to prior study dated: 07/17/2023. Hyperdynamic LV. visualized part of ascending aorta mildly dilated 3.7 cm (previously reported 4.2 cm) Measurements 2D Linear Measurements IVSd: 0.81 0.6-0.9/0.6-1.0 cm LVIDd: 5.42 3.9-5.3/4.2-5.9 cm LVIDd Index: 2.28 2.4-3.2/2.2-3.1 cm/m2 LVIDs: 3.85 2.0-3.6 cm LVPWd: 0.97 0.7-1.1 cm LA Diam: 4.00 2.7-3.8/3.0-4.0 cm LAIDs Index: 1.68 1.5-2.3 cm/m2 LV Mass: 222.91 67-162/88-224 g LV Mass Index: 93.66 43-95/49-115 g/m2 LVOT Diam: 2.30 3.0+(-)1.3 cm 2D Systolic Function EF 4C: 60.10 >55% EF 2C: 64.40 >55% EF BiP: 59.20 >55% Mitral Valve MV Pk E: 1.02 MV PK A: 0.69 MV Decel Time: 216.00 E/A: 1.50 E'Lateral: 9.79 E'Medial: 8.38 E/E' Med: 12.20 E/E' Lat: 10.40 PHT: 63.00 MVA PHT: 3.49 Decel Stephens: 4.71 Aortic Valve AoV Pk Mark Anthony: 1.77 AoV Mn Mark Anthony: 1.15 AoV VTI: 0.35 AoV Pk Grad: 13.00 Aov Mn Grad: 6.00 UNRULY Cont.VTI: 3.68 LVOT LVOT Pk Mark Anthony: 1.74 LVOT Mn Mark Anthony: 1.08 LVOT VTI: 0.31 LVOT Pk Grad: 12.00 LVOT Mn Grad: 5.00 LVOT Diam: 2.30 LVOT Area: 4.15 Diastolic Function MV Pk E: 1.02 MV Pk A: 0.69 E/A: 1.50 E'Medial: 8.38 E/E' Med: 12.20 E' Laterial: 9.79 E/E' Lat: 10.40 Right Ventricle TAPSE (mm): 21.40 TVS' Mark Anthony: 17.40 Tricuspid Valve TR Pk Mark Anthony: 1.89 TR Pk Grad: 14.00 RA Press: 8.00 RVSP: 22.00 Great Vessels Aorta Sinus of Valsalva: 3.50 2.0-3.5 cm Ao Asc: 3.70 2.1-3.4 cm Ao Arch: 3.30 Pulmonary Valve PV Pk Mark Anthony: 1.13 Peak PV Grad: 5.00 Updated in Other Vendor System with Status of Final Kamaljit Torres MD electronically signed on 07/19/2024 3:40:01 PM with status of Final
== END ==
LOC: HO.CARD 14:51
PROVIDERS: Visit Provider Internal Medicine Cardiovascular Disease
DX: I71.20 Thoracic aortic aneurysm, without rupture, unspecified (principal)
CPT/HCPCS: 93306

== ENCOUNTER → 2024-07-17 14:54 | Outpatient (BNV) | payer OTHER, SELFPAY | PROVIDERS: Visit Provider Internal Medicine Cardiovascular Disease | DX: I71.21 Aneurysm of the ascending aorta, without rupture (principal) | CPT/HCPCS: 93306 ==

== ENCOUNTER 2025-07-01 15:01 | Outpatient (AMB) | payer OTHER, SELFPAY ==
--- OUTSIDE RECORDS SUMMARY | 2023-08-07 10:45 | XMS_ITS | Continuity of Care Document ---
Author Organization [facility] Address [address] [place] [address] Phone Care Team Providers Care Cargoman Name Role Phone Jr RUIZ, RVT, DARIEL, Kwame Unavailable U navailable Allergies, Adverse Reactions, Alerts Substance Reaction Status Criticality No Known Allergies Active No Inform ation Medications Medication Instructions Dosage Effective Dates (start - stop) Status Comments METOPROLOL SUCCINATE (unknown strength) Not Available - Active Procedures Procedure Date Office/Outpt E&M Established 15 Mins Jul Duplex Scan-extrem Veins; Comp 24 Phleb Veins - Extrem + Duplex Scan-extrem Veins; Uni/ 23 Varithena, Single Truncal Vein 23 Endovenous Rf, 1st Vein Endovenous Rf, Vein Add-on Phleb Veins - Extrem 20+ Duplex Scan-extrem Veins; Uni/ 23 Varithena, Single Truncal Vein 23 Endovenous Rf, 1st Vein Endovenous Rf, Vein Add-on Office/Outpt E&M Established 15 Mins Mar Duplex Scan-extrem Veins; Comp Office/Oupt E&M New Pt 30 Mins Advance Directives Directive Yes / No Effective Date File Name No Information Encounters Encounter Description Practice Location Reason(s) For Visit Diagnoses Date Provider Providers Copied on Encounter Office/Outpt E&M Established 15 Mins [facility], [address] [place] [address] Dr Baez 1000[address], [id number], [place] tel:[phone] [place] Venous insufficiency (chronic) (peripheral) 4 Jr RUIZ RVT, DARIEL Puente. [address] [place] [address], [place], [place], [id number] , [place]. tel:[phone] Referring Provider: Nick Hill, [facility] [address], [place], [address]. tel:[phone] [facility], [address] [place] [address] Dr Baez 1000[address]L[place], [id number], [place] tel:[phone] [place] Encounter for follow-up examination after completed treatment for conditions other than malignant neVaricose veins of bilateral lower extremities with pain 4 Jr RUIZ RVT, DARIEL Puente. [facility] [address], [place], [place], [id number] , [place]. tel:[phone] Referring Provider: Nick Hill, [facility] [address], [place], [address]. tel:[phone] [facility], [address] [place] [address] Dr Baez 1000[address]L[place], [id number], [place] tel:[phone] [facility] [place] Varicose veins of left lower extremity with other complications 3 Ciara Vazquez . [address], [address], [place], [place], [id number] , [place]. tel:[phone] Referring Provider: Nick Hill, [facility] [address], [place], [address]. tel:[phone] [facility], [address] [place] [address] Dr Baez 1000[address] 1000L[place], [id number], [place] tel:[phone] [place] Encounter for follow-up examination after completed treatment for conditions other than malignant ne 3 Jr RUIZ RVT, DARIEL Puente. [address], [address], [facility], [place], [id number] , [place]. tel:[phone] Referring Provider: Nick Hill, [employer] [facility] [employer] [address], [place], [address]. [phone] [facility], [address] [place] [address] Dr Baez 1000[address] 1000L[place], [id number], [place] tel:[phone] CV[facility] - [facility] Chronic venous hypertension (idiopathic) with inflammation of left lower extremity 3 rJ RUIZ RVT, DARIEL Puente. [address], [address], [facility], [place], [id number] , [place]. tel: [phone] Referring Provider: Nick Hill, [employer] [facility] [address], [place], [address]. tel:[phone] [facility], [address] [place] [address] Dr Baez 1000[address] 1000L[place], [id number], [place] tel:[phone] CVR - [facility] Varicose veins of left lower extremity with other complications 3 Jr URIZ RVT, DARIEL Puente. [facility], [address], [facility], [place], [id number] , [place]. tel: [phone] Referring Provider: Nick Hill, [employer] [facility] [address], [place], [address]. [phone] [facility], [address] [place] [address] Dr Baez 1000Suite 1000L[place], [id number], [place] [phone] CVR - [facility] Varicose veins of right lower extremity with other complications 3 Ciraa Vazquez . [address], [address], [facility], [place], [id number] , [place]. tel:[phone] Referring Provider: Nick Hill, [employer] [facility] [address], [place], [address]. tel:[phone] [place] [facility], [address] [place] [address] [address], [place], [id number], [place] tel:[phone] CVR [facility] Encounter for follow-up examination after completed treatment for conditions other than malignant nePain in right leg 3 Tor RUIZ FACS HAYDEET DARIEL Johnson. [address] [place] [address], [address], [place], [address], [place]. tel:[phone] Referring Provider: Nick Hill, [employer] [facility] [address], [place], [address]. tel:[phone] [place] [facility], [address] [place] [address] [address], [place], [id number], [place] tel:[phone] [facility] Chronic venous hypertension (idiopathic) with inflammation of right lower extremity 3 Jr RUIZ, NAKITA, DARIEL Puente. [address] [place] [address], [place] [address], [place], [place], [id number] , [place]. tel:[phone] Referring Provider: Nick Hill, [employer] [facility] [address], [place], [address]. tel:[phone] [place] [facility], [address] [place] [address] [address], [place], [id number], [place] tel:[phone] [facility] Varicose veins of right lower extremity with other complications 3 Jr RUIZ RVT, DARIEL Puente. [address] [place] [address], [address], [place], [place], [id number] , [place]. tel:[phone] Referring Provider: Nick Hill, [employer] [facility] [employer] [address], [place], [address]. tel:[phone] Office/Outpt E&M Established 15 Mins [facility], [address] [place] [address] [address], [place], [id number], [place] tel:[phone] CVR - [facility] Chronic venous htn w oth comp of bilateral low extrm Sep-1 3 Tor Johnson. [address], [place] [address], [place], [address], [place]. tel:[phone] Referring Provider: Nick Hill, [facility] [address], [place], [address]. tel:[phone] [facility], [address] [place] [address] [address], [place], [id number], [place] tel:[phone] [facility] Varicose veins of bilateral lower extremities with pain Sep-1 3 Tor Johnson. [address], [place] [address], [place], [address], [place]. tel:[phone] Referring Provider: Nick Hill, [facility] [address], [place], [address]. tel:[phone] Office/Oupt E&M New Pt 30 Mins [facility], [address] [place] [address] Dr Baez [address], [place], [id number], [place] tel:[phone] CVR [facility] Chronic venous htn w oth comp of bilateral low extrmDisorder of pigmentation, unspecifiedFla il joint, unspecified jointCramp and spasmLocalized edema Sep-0 3 Tor Johnson. [address], [address], [place], [address], [place]. tel:[phone] Referring Provider: Nick Hill, [facility] [address], [place], [address]. tel:[phone] Family History Family Member Type Diagnosis Age At Onset No Information Payers Payer name Insurance type Covered republican ID Pedro BOUCHER (s) [id number] Social History Type Description Quantity Date Captured Comments Alcohol Use Details Unknown Caffeine Use Details Unknown Tobacco Use Status Current non-smoker Smoking Status Never Smoker Non-Smoking Tobacco Use Details : No Details Available : No Details Available Sex Male Vital Signs Date / Time: Height Weight BMI Pulse Rate Blood Pressure Temperature Respiratory Rate Body Surface Area Head Circumference Head Circ. Percentile Wt./Henry. Percentile BMI percentile Pulse Ox Inhaled Ox 130.630 kg (288.00 lbs) 41.5 1 kg/m eter (2) 134/84 mm[Hg] Chief Complaint And Reason For Visit No Information Reason For Referral Reason For Referral No Information Plan Of Treatment Date Type Action Status Goal Diet education completed Goal Diet education completed Referral Ordered: Weight management: Referral to physician timeframe: 3 Months (related to Body mass index (BMI) 40.0-44.9, adult) ordered Referral Ordered: Weight management: Referral to physician timeframe: 3 Months (related to Body mass index (BMI) 40.0-44.9, adult) ordered History Of Present Illness Encounter Date Complaint History Of Prese nt Illness No Information Functional Status Date Functional Assessmen t No Information Instructions Date Instruction Additional Infor jorden Patient education booklet given Related to Venous insufficiency (chronic) (peripheral) Lifestyle education Related to B precious mass index (BMI) 40.0-44.9, adult Giving Encouragement to exercise Related to Body mass index (BMI) 40.0-44.9, adult Diet education Related to Body mass index (BMI) 40.0-44.9, adult Diet education Related to Body mass index (BMI) 40.0-44.9, adult Lifestyle education Related to B precious mass index (BMI) 40.0-44.9, adult Giving Encouragement to exercise Related to Body mass index (BMI) 40.0-44.9, adult Patient education booklet given Related to Chronic venous htn w oth comp of bilateral low extrm Compression stocking usage as conservative measure Related to Chronic venous htn w oth comp of bilateral low extrm Assessments Type Assessment Date No Information Patient Care Teams Name Effective Dates (start - stop) Status Members No Information
--- NOTE | 2025-07-01 15:20 | MHC.OFFVIS ---
Vital Signs 07/01/25 15:21 Height 5 ft 10 in Weight 293 lb 3.437 oz BMI 42.1 BP 122/70 Blood Pressure Location Lt brachial Position Sitting Pulse 64 Pulse Source Monitor Intake Visit Reasons: 1 yr follow up Allergies No Known Allergies Allergy (Verified 06/25/23 15:19) Medication List - Last Reconciled 07/01/25 by Shelly Malagon NP-Liz metoprolol succinate ER 25 mg PO DAILY HPI HPI 1 yr follow up: Details: The patient is a 64 year old male presenting for a 1-year follow-up for thoracic aortic aneurysm and premature atrial contractions (PACs).. He has a history of a mildly dilated ascending aorta, measuring 3.7 cm on an echocardiogram from 07/17/2024. He also has a history of frequent premature atrial contractions, with a 13% burden and runs of up to 5 beats on a Holter monitor from 05/10/2022, for which he takes metoprolol XL 25 mg daily. 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 Past medical history is significant for obesity and mild obstructive sleep apnea. A sleep study performed 3 years ago was showed mild sleep apnea that is being managed conservatively. He reports a repeat sleep study is needed for annual DOT exam requirements. He does nap during the daytime. He has not been having any chest pains, shortness of breath or activity intolerance. He reports history of venous insufficiency with leg cramping, which improved after a vein procedure last year, though he still has some mild leg swelling.. He wears compressions socks while at work. 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 He reports occasional dizziness. Family history is notable for atrial fibrillation in his mother and two brothers. He drinks two 12-16 ounce coffees daily. present. [facility] Medical History Arthritis PAC (premature atrial contraction) PVC's (premature ventricular contractions) Thoracic aortic aneurysm (TAA) DONNA (obstructive sleep apnea) Obesity Surgical History History of arthroscopy of both knees Hx of varicose vein ligation Hx of vasectomy Hx of colonoscopy Hx of knee surgery Family History Father Cancer Mother Afib Brother Afib Social History Patient Tobacco Use Status: Never used Tobacco Review of Systems Const Details: daytime napping All systems reviewed & are unremarkable except as noted in HPI and below Denies weakness ENT Denies dizziness Card Denies chest pain, Denies chest pain with activity, Denies syncope, Denies rapid heart rate, Denies pedal edema, Denies edema, Denies leg edema, Denies lightheadedness, Denies palpitations, Denies dyspnea, Denies dyspnea on exertion and Denies orthopnea Resp Denies cough, Denies dyspnea and Denies dyspnea on exertion GI Denies hematochezia and Denies change in stool character Musc Denies abnormal gait, Denies muscle cramps, Denies muscle weakness, Denies numbness, Denies radiating pain into limb and Denies tingling Neuro Denies abnormal gait, Denies dizziness, Denies syncope, Denies numbness, Denies tingling and Denies weakness Endo Denies palpitations Physical Exam Vital Signs: Last Vital Signs Pulse 64 07/01/25 15:21 BP 122/70 07/01/25 15:21 BMI result Body Mass Index 42.1 Const General: cooperative, healthy appearing, comfortable and no acute distress Orientation/consciousness: patient oriented x3 Neck Neck: Yes normal visual inspection Resp Effort & Inspection: normal respiratory effort Auscultation: clear to auscultation bilaterally, no crackles, no rales, no rhonchi and no wheezes Cardio Rate: regular rate Rhythm: regular rhythm Heart sounds: S1 normal heart sound present, S2 normal heart sound present, no gallops, no murmurs and no rubs Neuro General: patient oriented x3 Extrem General: Yes normal to inspection Psych Appearance: grossly normal Mental Status: mental status grossly normal Speech and movement: Normal speech and movement present Office Procedures EKG Details: Today, read by me, normal sinus rhythm with sinus arrythmia, rate 64, Qtc 392ms [id number], Complete Assessment & Plan Assessment & Plan (1) Thoracic aortic aneurysm: Code(s): I71.20 - Thoracic aortic aneurysm, without rupture, unspecified Category: Medical Plan: Last echocardiogram showing mildly dilated ascending aorta 3.7 cm. He has good blood pressure control. Plan for repeat echocardiogram prior to next visit. (2) DONNA (obstructive sleep apnea): Comment: mild, treated with conservative measures Code(s): G47.33 - Obstructive sleep apnea (adult) (pediatric) Category: Medical Plan: Sleep study 2021 showing mild obstructive sleep apnea managed conservatively. He does have daytime hypersomnia. Will update home sleep study at his request per DOT recommendation. Plan to call him with results. (3) PAC (premature atrial contraction): Code(s): I49.1 - Atrial premature depolarization Category: Medical Plan: History of PACs with prior Holter 2021 showing PACs 13% of the time with short runs 4-5 beats. He is on metoprolol XL 25 mg daily and denies heart palpitations. EKG done today showing sinus rhythm with sinus arrhythmia, rate 64. Recommend reduction in caffeinated beverages. Call if he is noticing heart palpitations or elevated rates. With frequent PACs he is at higher risk of having atrial fibrillation. Last echocardiogram showed normal atria sizes which is reassuring. Plan I had a detailed discussion with the patient regarding his conditions. I explained that his ascending aortic aneurysm measures 3.7 cm, which is a mild enlargement, and that we would consider intervention if it reached 5.0 cm. I emphasized that an important factor in preventing its growth is maintaining good blood pressure control, and that his current reading of 122/70 is excellent. We discussed his premature atrial contractions (PACs) and the associated increased risk for developing atrial fibrillation (Afib), especially given his strong family history. I advised him to be vigilant for symptoms of Afib, such as a fluttering sensation or a rapid heartbeat, and to seek care if they occur. Regarding his DOT physical requirements, I will order a repeat sleep study to see if his mild sleep apnea has progressed. The plan is for him to follow up in one year with Dr. Lassiter and to have a repeat echocardiogram before that visit to monitor his aorta. He was instructed to contact us sooner if he experiences any new chest pain, trouble breathing, or increased palpitations. Orders: Orders RT home sleep study Today G47.33 - Obstructive sleep apnea (adult) (pediatric) CA echo transthoracic complete 11 Months I49.1 - Atrial premature depolarization, I71.20 - Thoracic aortic aneurysm, without rupture, unspecified Patient Instructions: - Continue to take Metoprolol 25 mg once daily as prescribed. - Schedule an echocardiogram (heart ultrasound) to be completed before your next appointment. - Schedule a follow-up appointment with Dr. Lassiter in one year. - Monitor for symptoms of atrial fibrillation (Afib), which can feel like fluttering in your chest or a very fast heartbeat. - If you feel lightheaded or dizzy, try drinking more fluids and adding a little salt to your diet, such as with a sports drink like Gatorade. - Please call our office or seek urgent medical attention if you experience any new chest pain, shortness of breath, or feel that your heart is racing or fluttering. Patient was informed and verbally consented to the use of an ambient scribe for clinic note documentation during this visit. Visit time spent on chart review, interview, assessment, orders, documentation. Coding Level of Care Code Est Pt Level 4 (78933) Add On Problem Visit Only Diagnoses Thoracic aortic aneurysm I71.20 DONNA (obstructive sleep apnea) G47.33 PAC (premature atrial contraction) I49.1 CPT Codes EKG - CPT: [id number], Complete ([id number]) Time Spent (min) 28
[2025-07-01 15:21] VITALS: BP 122/70; PULSE 64; BMI 42.1
--- OUTSIDE RECORDS SUMMARY | 2025-07-01 22:34 | XMS_ITS | Patient Health Record ---
Author Organization [facility] Address [address] [place] [address] Care Team Providers Care Surgery Scheduler Name Role Phone Nick Arriaga Primary Care Provider Todd Keith Jr Jake Unavailable Allergies No Known Allergies Reason For Referral No Information Medications Medication SIG (Take, Route, Frequency, Duration) Notes Start Date End Date Status MiraLax (colon prep) 17 GM/SCOOP Powder mixed with Gatorade or Crystal Light Orally begin at 5:00 p.m. the day before the procedure; Duration: 1 day 05/27/2023 Active Metoprolol Succinate ER 25 MG Tablet Extended Release 24 Hour Oral; Duration: 30 Active Immunizations Vaccine Route Administration Date Status Comme nts Influenza Unknown 05/29/2022 Administered Social History Social History Drugs/Alcohol: Social Info Question Answer Notes Alcohol Screen Did you have a drink containing alcohol in the past year? Yes How often did you have a drink containing alcohol in the past year? 2 to 4 times a month (2 points) How many drinks did you have on a typical day when you were drinking in the past year? 5 or 6 drinks (2 points) How often did you have 6 or more drinks on one occasion in the past year? Monthly (2 points) Points 6 Interpretation Positive Additional Details Category Social Info Options Details Miscellaneous: Marital status: Occupation: polisher Problems Problem Type SNOMED Code ICD Code Onset Dates Problem Status W/U Status Risk Notes Problem Colon cancer screening (643261221) Colon cancer screening (Z12.11) Active confirmed Problem History of polyp of colon (situation) (093663555) Personal history of colonic polyps (Z86.010) Active confirmed Problem Pre-procedure evaluation check (595441811) Encounter for other preprocedural examination (Z01.818) Active confirmed Plan Of Treatment Future Test Test Name Order Date COLONOSCOPY 06/26/2013 COLONOSCOPY 05/27/2023 Insurance Providers Payer Name Payer Address Payer Phone Subscriber Number Group Number Insured Name Patient Relationship to Insured Coverage Start Date Coverage End Date [address] [place], [place] [address] [phone] [id number] STEPHANIE CHAVIRA Self - patient is the insured Medical (General) History Medical History History ICD Code Colonoscopy 10/02, tubular adenoma, five- year followup PACs/PVCs Elevated BMI Arthritis Surgical History Surgery Date(Month/Year) vasectomy Varicose vein surgery MCL surgery left/right knees
--- OUTSIDE RECORDS SUMMARY | 2025-07-01 22:34 | XMS_ITS | Clinical Summary ---
Author Organization [facility] Address [address] [place] [address] Care Team Providers Care Bridge Crane Operator Name Role Phone Penny Varghese CONSTRUCTION CHECKER Primary Care Provider [phone] Allergies No known active allergies Medications econazole nitrate 1 % cream 06/02/2021 Active metoprolol succinate (TOPROL-XL) 25 mg 24 hr tablet Take 25 mg by mouth 07/02/2022 Active Active Problems Problem Noted Date Diagnosed Date Atrial premature depolarization 10/02/2022 Overview (10/02/2022): Followed by cardiology History of COVID-19 03/20/2022 Overview (03/20/2022): 06/2020 Dyslipidemia 02/02/2022 Class 3 severe obesity due t o excess calories with body mass index (BMI) of 40.0 to 44.9 in adult 05/10/2021 Tubular adenoma of colon 07/02/2019 Varicose vein of leg 07/02/2019 Resolved Problems Problem Noted Date Diagnosed Date Resolved Date Left foot infection 05/10/2021 06/08/20 21 Cellulitis of left foot 05/10/202105/22 Morbid obesity 07/02/2019 03/20/2022 Left knee injury 07/02/2019 06/08/2021 Immunizations Immunization Administration Dates Next Due COVID-19 Pfizer SARS-CoV2 mR NA PF 30mcg/0.3mL Booster Vaccine (Purple) 11/25/2020,11/04/2020 COVID-19 Pfizer SARS-CoV2 mR NA PF 30mcg/0.3mL Vaccine (Purple) 08/12/2021 COVID-19 Pfizer Sars-cov2 mr na Bivalent Booster Pf 30mcg/0.3mL Mauro (Blackman) 5y-11y 05/25/2022 Influenza, trivalent (IIV3), split virus (single-dose) PF 05/25/2022,06/08/2021 Tdap 08/02/2017 Zoster, Recombinant (Shingrix) 08/30/2022,2021 Family History Medical History Relation Comments Heart disease Mother Hypertension Mother Relation Status Comments Father Mother Alive Social History Tobacco Use Types Packs/Day Years Used Date Smoking Tobacco: Never Smokeless Tobacco: Never Alcohol Use Standard Drinks/Week Comments Yes 6 (1 standard drink = 0.6 oz pur e alcohol) AUDIT-C Answer Date Recorded Q1: How often do you have a drink containing alc ohol? 2-3 times a week 08/05/2020 Average Number of Drinks Not on file 021 Frequency of Binge Drinking Not on file 07/22 PHQ-2 Answer Date Recorded Depression Risk (PHQ2) Score 0 Sex and Gender Information Value Date Recorded Sex Assigned at Male 02/02/2022 9:25 AM [facility] Legal Sex Male 9:52 AM [facility] Gender Identity Male 02/02/2022 9:25 AM [facility] Sexual Orientation Straight 02/02/2022 9: 25 AM [facility] Last Filed Vital Signs Vital Sign Reading Time Taken Comments Blood Pressure 114/73 10/02/2022 3:16 PM EDT Pulse 66 10/02/2022 3:16 PM EDT Temperature 36.5 C (97.7 F) 10/02/2022 3:16 PM EDT Respiratory Rate 16 08/05/2020 8:13 AM EST Oxygen Saturation 97% 10/02/2022 3:16 PM EDT Inhaled Oxygen Concentration - - Weight 140 kg (308 lb) 10/02/2022 3:16 PM EDT Height 175.3 cm (5' 9 ) 02/02/2022 9:58 AM EDT Body Mass Index 45.48 02/02/2022 9:58 AM EDT Plan of Treatment Health Maintenance Due Date Last Done Comments CT Colonography 1962 Cologuard 1962 Colonoscopy 1962 Colorectal Cancer Screening 1962 FOBT/FIT 1962 Sigmoidoscopy 1962 MMR Vaccines (1 of 1 - Standard series) 09/30/1963 PHQ-9 Depression Screen 1974 NINO-7 Anxiety Screen 1980 Pneumococcal Vaccine: 50+ Years (1 of 1 - PCV) 2012 RSV Vaccine (SCDM) (1 - Risk 60-74 years 1-dose series) 2022 Annual Preventive Exam 10/03/2023 , 08/08/2021, 07/17/2019 COVID-19 Vaccine (2 - 2024- season) 2025 05/25/2022, 08/12/2021, 11/25/2020, Additional history exists Influenza Vaccine (#1) 2025 05/25/2022, 2020 DTaP,Tdap,and Td Vaccines (2 - Td or Tdap) 08/02/2027 08/02/2017 Hepatitis C Screening Completed 08/29/2021 Zoster Vaccines Completed 08/30/2022, 05/25/2022 Hepatitis B Vaccines Aged Out No long er eligible based on patient's age to complete this topic Procedures Procedure Name Priority Date/Time Associated Diagnosis Comments HEPATITIS C ANTIBODY Routine 08/29/2021 3:20 PM EST Annual physical exam from Last 3 Months or Most Recently Relevant to Health Maintenance Results * Hepatitis C antibody (08/29/2021 3:20 PM EST) Hep C Virus Ab 0.3 0.0 - 0.9 s/co ratio [facility] Comment: Negative: < 0.8 Indeterminate: 0.8 - 0.9 Positive: > 0.9 The CDC recommends that a positive HCV antibody result be followed up with a HCV Nucleic Acid Amplification test (892645). Blood (Blood, Venous) 08/29/2021 3:20 PM EST 08/29/2021 Comment:Blood, Venous Narrative [facility] - 08/30/2021 12:10 PM EST Performed at: 01 - [facility] [address] [id number] Planning Aide: Edith Mcdonald MD, Phone: [phone] us Penny Varghese NP LAB BLOOD ORDERABLES Final Result [facility] from Last 3 Months or Most Recently Relevant to Health Maintenance Insurance [employer] Care Teams Bridge Crane Operator Relationship Specialty Start Date End Date Penny Varghese NP [address] [place] [id number] PCP - General Family Medicine 08/30/21
== END 2025-07-01 15:53 | disposition home or self-care (01) ==
LOC: HO.HCS 15:02
PROVIDERS: Visit Provider Internal Medicine Cardiovascular Disease
DX: I49.9 Cardiac arrhythmia, unspecified (principal)
CPT/HCPCS: 93010; 99214

== ENCOUNTER → 2025-07-01 15:01 | Outpatient (BNVA) | payer OTHER, SELFPAY | PROVIDERS: Visit Provider Internal Medicine Cardiovascular Disease | DX: I71.20 Thoracic aortic aneurysm, without rupture, unspecified (principal); G47.33 Obstructive sleep apnea (adult) (pediatric); Z99.89 Dependence on other enabling machines and devices; I49.1 Atrial premature depolarization; E66.9 Obesity, unspecified; Z68.41 Body mass index [BMI] 40.0-44.9, adult; Z13.89 Encounter for screening for other disorder | CPT/HCPCS: 93005 ==